=== PATIENT | male | born 1975 | race Caucasian/White ===

== ENCOUNTER 2019-05-19 21:30 | Emergency (ER) | payer MEDICAID ==
[~2019-05-19] VITALS: Ht 165.1 cm; Wt 75.4 kg
[2019-05-19 21:47] VITALS: BP 167/91; PULSE 93; RESP 18; Ht 165.1 cm; Wt 75.4 kg
--- NOTE | 2019-05-19 22:12 | ERD ---
ER Documentation Chief Complaint Chief Complaint right eye foreign body x 3 hours from shattered eyeglasses HPI Patient is a 43 years old male with no known past medical history presenting to the clinic for foreign body in the right eye next 3 hours. Patient reports fishing in [place] and the fish slammed onto his eyeglass on the right side. Patient reports that his sunglasses shattered and believes pieces related to his. Patient admits to drinking with ophthalmic solution. Patient admits to burning sensation states that he still feels something inside of his right eye. ROS All systems reviewed and are negative except as per history of present illness. Medications Home Meds Active Scripts Erythromycin Base (Erythromycin) 1 Gm Oint...g., 1 APPLIC RIGHT EYE QID for 7 Days Prov:JERRI ARMENTA PA-C 05/19/19 Allergies Allergies: Coded Allergies: No Known Drug Allergies (Verified Allergy, Unknown, 05/19/19) PMhx/Soc Medical and Surgical Hx: pt denies Medical Hx, pt denies Surgical Hx Hx Alcohol Use: No Hx Substance Use: No Hx Tobacco Use: No Smoking Status: Never smoker Physical Exam Vitals Vital Signs Date Temp Pulse Resp B/P (MAP) Pulse Ox O2 O2 Flow FiO2 Time Delivery Rate 05/19/19 98.4 93 18 167/91 97 21:47 (116) Physical Exam Const: No acute distress Head: Atraumatic Eyes: Right conjunctiva erythematous. Multiple small foreign body noted on right eye. Visual acuity intact. Neck: Full range of motion. No meningismus. Resp: Clear to auscultation bilaterally Cardio: Regular rate and rhythm, no murmurs Neur: Awake and alert Psych: Normal Mood and Affect Procedures/MDM Patient was seen and evaluated for foreign body of right eye. Copious right eye irrigation with normal saline performed in ED with improvement of symptoms. Patient reports sensation of foreign body sensation resolved and only burning sensation persist. Repeat eye exam showed no foreign body. Patient is stable and ready for discharge. Follow-up with sap bw bi developer. Patient will be discharged with erythromycin ointment. Departure Diagnosis: Primary Impression: Retained foreign body Condition: Stable Patient Instructions: Foreign Object in the Cornea Referrals: DIDIER LAGUERRE MD, JOSEPH MD LATTO,ELIE PELLETIER MD, MD [facility] Additional Instructions: Patient advised to return to the ED immediately for new or worsening symptoms. Patient advised to follow up with primary care provider in the next 24-48 hours. Patient verbalized understanding and agrees with treatment plan and course of action. If patient has no primary care they may follow up with [facility] [address] [place] [id number] or [facility] [id number] [place] [id number] [address] [address] JERRI ARMENTA PA-C May 19, 2019 22:12
[2019-05-19] MEDS ORDERED: ERYT1OIN6 RIGHT EYE (23:12)
== END 2019-05-19 23:18 | disposition home or self-care (01) ==
LOC: FTE 21:30
DX: T15.91XA Foreign body on external eye, part unspecified, right eye, initial encounter (principal); X58.XXXA Exposure to other specified factors, initial encounter; Y92.9 Unspecified place or not applicable
CPT/HCPCS: 99283